=== PATIENT | female | born 2005 | race Caucasian/White ===

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

== ENCOUNTER 2023-01-27 08:00 | Outpatient (CLI) | payer OTHER ==
[2023-01-27 21:26] LABS: CHLAMYDIA TRACHOMATIS DNA NEGATIVE (NEGATIVE); NEISSERIA GONORRHOEAE DNA NEGATIVE (NEGATIVE); TRICHOMONAS VAGINALIS DNA NEGATIVE (NEGATIVE)
== END 2023-01-27 23:59 | disposition home or self-care (01) ==
LOC: LAB.WC 08:00
PROVIDERS: ATTEND Obstetrics & Gynecology
DX: Z11.3 Encounter for screening for infections with a predominantly sexual mode of transmission (principal)
CPT/HCPCS: 87491; 87591; 87661

== ENCOUNTER 2023-04-21 08:40 | Outpatient (CLI) | payer OTHER | END 2023-04-21 23:59 | disposition critical access hospital (66) | LOC: EMS 08:40 | DX: M54.2 Cervicalgia (principal); M25.561 Pain in right knee; M25.562 Pain in left knee; R11.0 Nausea; M54.50 Low back pain, unspecified; M25.552 Pain in left hip; R10.30 Lower abdominal pain, unspecified; V54.5XXA Driver of pick-up truck or van injured in collision with heavy transport vehicle or bus in traffic accident, initial encounter; Y92.413 State road as the place of occurrence of the external cause | CPT/HCPCS: A0425; A0429 ==

== ENCOUNTER 2023-04-21 09:11 | Emergency (ER) | payer OTHER ==
[2023-04-21] MEDS ORDERED: ACETAMINOPHEN 500 MG TABLET PO STA (09:17)
[2023-04-21] MEDS ORDERED: PROMETHAZINE INJ 25 MG in SODIUM CHLORIDE 0.9% 50 ML IV STA (09:18)
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
[2023-04-21 09:32] LABS: BASOPHILS % (AUTO) 0.4 %; EOSINOPHILS # (AUTO) 0.1 10^3/uL (0.0-0.7); HCT - HEMATOCRIT 40.8 % (37.0-47.0); HGB - HEMOGLOBIN 13.3 g/dL (12.0-16.0); LYMPHOCYTES # (AUTO) 1.8 10^3/uL (1.5-3.5); LYMPHOCYTES % (AUTO) 34.3 %; MEAN CORPUSCULAR HEMOGLOBIN 28.3 pg (27.0-31.0); MEAN CORPUSCULAR HGB CONC 32.6 g/dL (32.0-36.0); MEAN CORPUSCULAR VOLUME 86.8 fL (81.0-99.0); MEAN PLATELET VOLUME 8.5 fL (7.9-10.8); MONOCYTES # (AUTO) 0.4 10^3/uL (0.0-1.0); MONOCYTES % (AUTO) 6.8 %; NEUTROPHILS % (AUTO) 57.5 %; PLT - PLATELET COUNT 366 10^3/uL (130-450); RED CELL DISTRIBUTION WIDTH 13.1 % (12.0-15.0); WHITE BLOOD COUNT 5.1 x10^3/uL (4.8-10.8)
[2023-04-21 09:44] LABS: BILIRUBIN,URINE NEGATIVE (NEGATIVE); GLUCOSE, URINE (UA) NEGATIVE (NEGATIVE); KETONES,URINE (UA) NEGATIVE (NEGATIVE); LEUKOCYTE ESTERASE, URINE NEGATIVE (NEGATIVE); NITRITE,URINE NEGATIVE (NEGATIVE); OCCULT BLOOD,URINE NEGATIVE (NEGATIVE); PH,URINE 6.5 PH (5.0-7.5); PROTEIN,URINE NEGATIVE (NEGATIVE); UROBILINOGEN,URINE 0.2 (NORMAL) E.U./dL (NORMAL)
[2023-04-21 09:49] LABS: CLARITY,URINE CLEAR (CLEAR)
[2023-04-21 09:50] LABS: HCG UR QUAL NEGATIVE
[2023-04-21 10:01] LABS: ALBUMIN 4.8 g/dL (3.2-5.5); ALBUMIN/GLOBULIN RATIO 1.5 (1.0-2.2); BILIRUBIN,TOTAL 0.4 mg/dL (0.2-1.0); CALCIUM 10.2 mg/dL (8.5-10.3); CREATININE 0.7 mg/dL (0.6-1.3); POTASSIUM 3.7 mmol/L (3.5-4.5); TOTAL PROTEIN 7.9 g/dL (6.4-8.9)
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
[2023-04-21] MEDS ORDERED: iohexoL-300 100 ML VIAL IVP ONE (10:40)
[2023-04-21 10:47] VITALS: BP 130/77; O2SAT 99
== END 2023-04-21 10:51 | disposition home or self-care (01) ==
LOC: EDUNIT# → ED 09:11
DX: R10.30 Lower abdominal pain, unspecified (principal); V43.52XA Car driver injured in collision with other type car in traffic accident, initial encounter; I10 Essential (primary) hypertension
CPT/HCPCS: 36415; 74177; 80053; 81003; 81025; 83690; 85025; 96365; 99283; 99284; A9270; J7040; Q9967; 81001; 87086

== ENCOUNTER 2023-06-01 18:46 | Outpatient (CLI) | payer OTHER ==
--- NOTE | 2023-06-01 20:23 | Ultrasound Report ---
PROCEDURE: Pelvic w/Transvaginal INDICATIONS: ACUTE PELVIC PAIN TECHNIQUE: Real-time scanning was performed of the pelvic organs, with image documentation. Additional endovagi nal scanning was necessary due to incomplete visualization of the adnexal and endometrial structures by transabdominal scanning. COMPARISON: 04/11/2023 CT FINDINGS: Uterus: 7.8 x 3.4 x 2.8 cm on the right and 7.4 x 3.2 x 3.1 cm on the left. Uterine didelphys. Anteve rted positioning. The endometrium measures 8 mm on the right and 7 mm on the left. Ovaries: Nonenlarged bilaterally measuring 5 to 6 cc. Dominant follicle is seen on the left measuring up to 2.9 x 1.5 cm. Color and spectral Doppler: flows are documented Other: No pathologic free fluid. IMPRESSION: No evidence of ovarian torsion. Uterus didelphys. Reviewed by: Doug Matute MD on 06/01/2023 8:22 PM PST Approved by: Doug Matute MD on 06/01/2023 8:22 PM PST Station ID: [id number]
== END 2023-06-01 18:47 | disposition home or self-care (01) ==
LOC: DI 18:46
PROVIDERS: ATTEND Obstetrics & Gynecology
DX: R10.2 Pelvic and perineal pain (principal); Q51.28 Other and unspecified doubling of uterus

== ENCOUNTER 2023-06-15 20:38 | Emergency (ER) | payer OTHER ==
[2023-06-15 21:03] VITALS: BP 122/74
[2023-06-15] MEDS ORDERED: PIPERACILLIN/TAZOBACTAM 3.375 GM in SODIUM CHLORIDE 0.9% MINIBAG 100 ML IV STA (21:15)
[2023-06-15] MEDS ORDERED: ONDANSETRON 4 MG/2 ML VIAL IVP STA ×2 (21:15→22:35)
[2023-06-15] MEDS ORDERED: SODIUM CHLORIDE 0.9% 1,000 ML IV STA (21:15)
[2023-06-15 21:20] LABS: BASOPHILS % (AUTO) 0.4 %; EOSINOPHILS % (AUTO) 0.3 %; HCT - HEMATOCRIT 38.2 % (37.0-47.0); HGB - HEMOGLOBIN 12.6 g/dL (12.0-16.0); LYMPHOCYTES # (AUTO) 2.2 10^3/uL (1.5-3.5); LYMPHOCYTES % (AUTO) 29.1 %; MEAN CORPUSCULAR HEMOGLOBIN 28.6 pg (27.0-31.0); MEAN CORPUSCULAR VOLUME 86.8 fL (81.0-99.0); MEAN PLATELET VOLUME 8.2 fL (7.9-10.8); MONOCYTES # (AUTO) 0.5 10^3/uL (0.0-1.0); MONOCYTES % (AUTO) 6.3 %; NEUTROPHILS # (AUTO) 4.7 10^3/uL (1.5-6.6); NEUTROPHILS % (AUTO) 63.8 %; PLT - PLATELET COUNT 342 10^3/uL (130-450); RED CELL DISTRIBUTION WIDTH 12.5 % (12.0-15.0); WHITE BLOOD COUNT 7.4 x10^3/uL (4.8-10.8)
[2023-06-15] MEDS ORDERED: MORPHINE 2 MG/ML CARPUJECT IVP STA ×2 (21:26→22:35)
--- NOTE | 2023-06-15 21:28 | ED Physician Documentation ---
History of Present Illness - Stated complaint Stated Complaint: ABD PX - Chief complaint Chief Complaint: Abd Pain - History obtained from History obtained from: Patient - Additonal information Additional information: 17yF previously healthy with no psh p/w RLQ pain X 2 days. patient was seen in urgent care yesterday, sent for outpatient CT and put on cipro/flagyl. she has had two doses. CT report came back with concern for early appendicitis so she presented here for further eval. 11/29 pain in RLQ, with associated nbnb n/v. denies fever, back pain, urinary sx PD PAST MEDICAL HISTORY - Past Medical History Cardiovascular: Hypertension GI: GERD - Past Surgical History Past Surgical History: Yes HEENT: Other - Present Medications Home Medications: Ambulatory Orders Medication Instructions Recorded Confirmed Escitalopram [Lexapro] 20 mg PO DAILY 11/05/22 06/15/23 Menthol [[place]] 7.5 mg MM Q6HR PRN #30 lozenge 11/05/22 Non Formulary 1 each PO QD 11/05/22 11/05/22 atenoloL [Tenormin] 25 mg PO DAILY 11/05/22 06/15/23 cephALEXin [Keflex] 500 mg PO TID #20 cap 11/07/22 Cyclobenzaprine [Flexeril] 10 mg PO TID PRN #20 tablet 04/21/23 Levocetirizine Dihydrochloride 1 tab PO DAILY 06/15/23 06/15/23 [Xyzal] Promethazine [Phenergan] 25 mg PO Q6H PRN #10 tablet 06/16/23 - Allergies Allergies/Adverse Reactions: Allergies Allergy/AdvReac Type Severity Reaction Status Date / Time amoxicillin [From Augmentin] Allergy Rash Verified 06/15/23 23:02 clavulanic acid Allergy Rash Verified 06/15/23 23:02 [From Augmentin] methadone Allergy Hives Verified 06/15/23 23:02 - Social History Does the pt smoke?: No Smoking Status: Never smoker Does the pt drink ETOH?: No Does the pt have substance abuse?: No - Immunizations Immunizations are current?: Yes - POLST Patient has POLST: No PD ED PE NORMAL - Vitals Vital signs reviewed: Yes - General General: Alert and oriented X 3, No acute distress, Well developed/nourished - HEENT HEENT: Atraumatic, PERRL, EOMI, Moist mucous membranes, Pharynx benign - Neck Neck: Supple, no meningeal sign - Cardiac Cardiac: RRR - Respiratory Respiratory: No respiratory distress, Clear bilaterally - Abdomen Abdomen: Other (RLQ ttp without guarding or rebound) - Derm Derm: Normal color, Warm and dry - Neuro Neuro: No motor deficit, No sensory deficit Results - Vitals Vitals: Vital Signs - 24 hr 06/15/23 06/15/23 20:51 23:23 Temperature 36.4 C L Heart Rate 95 89 Respiratory 17 17 Rate Blood Pressure 122/74 O2 Saturation 100 100 Oxygen O2 Source Room air - Labs Labs: Laboratory Tests 06/15/23 06/15/23 06/15/23 21:11 21:11 22:49 WBC 7.4 RBC 4.40 Hgb 12.6 Hct 38.2 MCV 86.8 MCH 28.6 MCHC 33.0 RDW 12.5 Plt Count 342 MPV 8.2 Neut # (Auto) 4.7 Lymph # (Auto) 2.2 Branch # (Auto) 0.5 Eos # (Auto) 0.0 Baso # (Auto) 0.0 Absolute Nucleated RBC 0.00 Nucleated RBC % 0.0 Sodium 136 Potassium 3.4 L Chloride 103 Carbon Dioxide 23 Anion Gap 10.0 BUN 9 Creatinine 0.7 Estimated GFR (MDRD) 108 Glucose 89 Calcium 9.5 Total Bilirubin 0.5 AST 19 ALT 18 Alkaline Phosphatase 68 Total Protein 8.0 Albumin 4.5 Globulin 3.5 Albumin/Globulin Ratio 1.3 Lipase < 10 L Urine Color YELLOW Urine Clarity CLEAR Urine pH 7.0 Ur Specific [place] >=1.030 H Urine Protein NEGATIVE Urine Glucose (UA) NEGATIVE Urine Ketones 40 H Urine Occult Blood NEGATIVE Urine Nitrite NEGATIVE Urine Bilirubin NEGATIVE Urine Urobilinogen 0.2 (NORMAL) Ur Leukocyte Esterase NEGATIVE Ur Microscopic Review NOT INDICATED Urine Culture Comments NOT INDICATED Urine HCG, Qual 06/15/23 22:49 WBC RBC Hgb Hct MCV MCH MCHC RDW Plt Count MPV Neut # (Auto) Lymph # (Auto) Branch # (Auto) Eos # (Auto) Baso # (Auto) Absolute Nucleated RBC Nucleated RBC % Sodium Potassium Chloride Carbon Dioxide Anion Gap BUN Creatinine Estimated GFR (MDRD) Glucose Calcium Total Bilirubin AST ALT Alkaline Phosphatase Total Protein Albumin Globulin Albumin/Globulin Ratio Lipase Urine Color Urine Clarity Urine pH Ur Specific [place] Urine Protein Urine Glucose (UA) Urine Ketones Urine Occult Blood Urine Nitrite Urine Bilirubin Urine Urobilinogen Ur Leukocyte Esterase Ur Microscopic Review Urine Culture Comments Urine HCG, Qual NEGATIVE PD Medical Decision Making - ED course ED course: 17yF presents to the ED with CT concerning for possible early appendicitis, but with normal WBC. [facility] CT report is "normal caliber appendix with air in the distal appendiceal lumen, with subtle stranding of the base of the appendix". d/w Dr. Buck who doubts appendicitis and recommends u/s to investigate other possible sources. 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 she is aware of this and states her mother and sister have similar anatomies. otherwise has normal flow to both ovaries. hcg negative. patient's LMP was 1/10. she states she normally does not have pain like this with menses. she does state she had 4 loose stools today. repeat abdominal exam remains soft without guarding or rebound, therefore suspect viral gastroenteritis as more likely cause. Discussed option of repeating CT with patient but given she is feeling better and the large amount of radiation with lower suspicion for appendicitis, a shared decision was made to opt for watchful waiting. Antinausea meds sent to pharmacy. Strict return precautions given. Departure - Departure Disposition: 01 Home, Self Care Clinical Impression: Vomiting, Abdominal pain, Diarrhea Condition: Fair Instructions: ED Vomiting Diarrhea Nonspecific Ad Prescriptions: Promethazine [Phenergan] 25 mg PO Q6H PRN #10 tablet PRN Reason: Nausea / Vomiting Comments: You were seen in the emergency department for Abdominal pain, vomiting and diarrhea. Prescription sent electronically to [facility] in [place]. Please follow-up with your primary care provider and return to the emergency department if you have any new or worsening symptoms or other concerns. Forms: PCP List
[2023-06-15 21:42] LABS: ALBUMIN 4.5 g/dL (3.2-5.5); ALBUMIN/GLOBULIN RATIO 1.3 (1.0-2.2); ALKALINE PHOSPHATASE 68 IU/L (42-121); ALT ALANINE AMINOTRANSFERASE 18 IU/L (10-60); AST ASPARTATE AMINOTRANSFERASE 19 IU/L (10-42); BILIRUBIN,TOTAL 0.5 mg/dL (0.2-1.0); BUN - BLOOD UREA NITROGEN 9 mg/dL (6-20); CALCIUM 9.5 mg/dL (8.5-10.3); CARBON DIOXIDE - CO2 23 mmol/L (21-32); CHLORIDE 103 mmol/L (101-111); CREATININE 0.7 mg/dL (0.6-1.3); GFR - MDRD 108 (>89); GLUCOSE 89 mg/dL (74-104); POTASSIUM 3.4 mmol/L (3.5-4.5); SODIUM 136 mmol/L (135-145)
[2023-06-15 21:47] LABS: LIPASE < 10 U/L (11-82)
[2023-06-15 23:02] LABS: BILIRUBIN,URINE NEGATIVE (NEGATIVE); GLUCOSE, URINE (UA) NEGATIVE (NEGATIVE); KETONES,URINE (UA) 40 mg/dL (NEGATIVE); LEUKOCYTE ESTERASE, URINE NEGATIVE (NEGATIVE); NITRITE,URINE NEGATIVE (NEGATIVE); OCCULT BLOOD,URINE NEGATIVE (NEGATIVE); PROTEIN,URINE NEGATIVE (NEGATIVE); UROBILINOGEN,URINE 0.2 (NORMAL) E.U./dL (NORMAL)
[2023-06-15 23:03] LABS: CLARITY,URINE CLEAR (CLEAR)
[2023-06-15 23:05] LABS: HCG UR QUAL NEGATIVE
[2023-06-16] MEDS ORDERED: PROMETHAZINE 25 MG TABLET PO STA (01:12)
--- NOTE | 2023-06-16 01:19 | Ultrasound Report ---
PROCEDURE: Pelvic w/Doppler Limited INDICATIONS: RLQ pain TECHNIQUE: Real-time transabdominal scanning was performed of the pelvic organs, with image documentation. Dopp ler interrogation was performed of the ovaries bilaterally. COMPARISON: CT abdomen and pelvis, 04/21/2023. Ultrasound pelvis, 06/01/2023. FINDINGS: Uterus: Uterine didelphys. Right uterus measures 8.5 x 3.3 x 3.4 cm with endometrium measuring 1 cm. Left ureter is measures 6.5 x 3.3 x 2.7 cm with endometrium measuring 0.9 cm. The myometrium is homo geneous. Ovaries: The right ovary measures 3.2 x 2.1 x 2.9 cm, with a calculated ovarian volume of 10.4 cc. The left ovary measures 2.4 x 1.6 x 2 point cm, with a calculated ovarian volume of 6.0 cc. Appropri ate blood flow to the ovaries with Doppler interrogation. Less than 12 follicles can be seen in eac h ovary. No adnexal masses are seen. No cystic lesions measuring greater than 3 cm. Other: No pathologic free abdominal or pelvic fluid. IMPRESSION: 1. A cause for right lower quadrant pain is not identified. 2. No findings to suggest ovarian torsion. 3. Uterine didelphys. Reviewed by: Klaus Leigh MD on 06/16/2023 1:18 AM PST Approved by: Klaus Leigh MD on 06/16/2023 1:18 AM PST Station ID: [id number]
[2023-06-16 01:25] VITALS: O2SAT 99
== END 2023-06-16 01:43 | disposition home or self-care (01) ==
LOC: ED 20:38
DX: R19.7 Diarrhea, unspecified (principal); R10.9 Unspecified abdominal pain; R11.10 Vomiting, unspecified; I10 Essential (primary) hypertension
CPT/HCPCS: 36415; 76856; 80053; 81003; 81025; 83690; 85025; 87040; 93976; 96365; 96375; 99284; Q0169; 81001; 87086